=== PATIENT | male | born 1945 | race Caucasian/White ===

== ENCOUNTER 2019-07-02 10:14 | Emergency (ER) | payer MEDICARE, OTHER ==
--- OUTSIDE RECORDS SUMMARY | 2019-07-02 10:19 | XMS REPORT | Continuity of Care Document ---
:1945 External Reference #:[id number] Author Name EH Fleming Address [address] [place] [id number] Problems Active Problems Provider Date Primary basal cell carcinoma of left lower limb Onset: 10/21/2018 Basal cell carcinoma of ear Onset: 10/21/2018 Degenerative disorder of macula Onset: 08/07/2017 Esophageal reflux finding Onset: 08/07/2017 Benign prostatic hyperplasia Onset: 08/05/2016 Essential hypertension Onset: 08/05/2016 Inactive Problems Benign essential hypertension Onset: 04/20/2019 Inactive: 04/20/2019 Vertigo Onset: 02/16/2019 Inactive: 02/16/2019 Dizziness and giddiness Onset: 02/16/2019 Inactive: 02/16/2019 Visual disturbance Onset: 02/16/2019 Inactive: 02/16/2019 Social History Type Date Description Comments Sex Unknown Allergies, Adverse Reactions, Alerts Description No Information Available Medications Active Medications SIG Qnty Indications Ordering Date Provider Fluticasone Propionate 2 sprays daily 3units Unknown 04/20/2019 Nasal 50mcg/Act Suspension Lisinopril-Hydrochloro Oral; Take 1 90tabs Unknown 10/18/2018 thiazide Tablet Daily 10-12.5mg Tablets Aspirin Ec 1 daily Oral 30tabs Unknown 08/07/2017 81mg Tablets Pantoprazole Sodium Oral; Take 1 90tabs Unknown 08/01/[address] DR Solizteaundrea Allergy Oral Unknown 08/05/2016 10mg Tablets Triamcinolone Apply twice 60units Unknown 08/05/2016 Acetonide daily External 0.1% Ointment Immunizations CPT Code Status Date Vaccine Lot # [id number] Given 07/13/2018 Influenza Virus Vaccine, Quadrivalent, Split, Im Use 0.25ML 66826 Given 07/13/2018 Influenza Virus Vaccine, Quadrivalent, Split, Im Use 0.25ML 86110 Given 07/13/2018 Influenza Virus Vaccine, Quadrivalent, Split, Im Use 0.25ML 87728 Given 07/13/2018 Flu < 65 years 68477 Given 07/13/2018 Influenza Virus Vaccine, Quadrivalent, Split, Preservative Free 48735 Given 07/13/2018 Flumist 57567 Given 07/13/2018 Flu High Dose 10441 Given 07/13/2018 Influenza Virus Vaccine, Split, Preserv Free, Intradermal Use 07576 Given 05/18/2018 Pneumovax - for >=2years - PPSV23 64779 Given 08/07/2017 Influenza Virus Vaccine, Split, Preserv Free, Intradermal Use 40181 Given 08/07/2017 Flu High Dose 93458 Given 08/07/2017 Flumist 18550 Given 08/07/2017 Influenza Virus Vaccine, Quadrivalent, Split, Preservative Free 27542 Given 08/07/2017 Flu < 65 years 71215 Given 08/07/2017 Influenza Virus Vaccine, Quadrivalent, Split, Im Use 0.25ML 67947 Given 08/07/2017 Influenza Virus Vaccine, Quadrivalent, Split, Im Use 0.25ML 31364 Given 08/07/2017 Influenza Virus Vaccine, Quadrivalent, Split, Im Use 0.25ML 20521 Given 08/05/2016 Influenza Virus Vaccine, Quadrivalent, Split, Im Use 0.25ML 37358 Given 08/05/2016 Influenza Virus Vaccine, Quadrivalent, Split, Im Use 0.25ML 45263 Given 08/05/2016 Influenza Virus Vaccine, Quadrivalent, Split, Im Use 0.25ML 53325 Given 08/05/2016 Flu < 65 years 66989 Given 08/05/2016 Influenza Virus Vaccine, Quadrivalent, Split, Preservative Free 56706 Given 08/05/2016 Flumist 54508 Given 08/05/2016 Prevnar 13 55746 Given 08/05/2016 Flu High Dose 79130 Given 08/05/2016 Influenza Virus Vaccine, Split, Preserv Free, Intradermal Use Vital Signs Date Vital Result Comment 06/28/2019 10:15am BP Systolic 130 mmHg BP Diastolic 72 mmHg Weight 207.00 lb Heart Rate 76 /min Body Temperature 96.9 F O2 % BldC Oximetry 97 % 04/20/2019 9:50am BP Systolic 138 mmHg Weight 204.00 lb Heart Rate 76 /min Body Temperature 97.6 F O2 % BldC Oximetry 97 % Results Test Acquired Date Facility Test Result H/L Range Note Hemoglobin 02/16/2019 N2N/CCD Import Hemoglobin 14.5 g/dL 14.0-18.0 g/dL Lymph# 02/16/2019 N2N/CCD Import Lymph# 2.4 1.0-4.8 10_3/ul 10 3/ul Lymph% 02/16/2019 N2N/CCD Import Lymph% 26.4 % 20 - 45 % MCH 02/16/2019 N2N/CCD Import MCH 31 pg 27-31 pg MCHC 02/16/2019 N2N/CCD Import MCHC 34 g/dL 31-36 g/dL MCV 02/16/2019 N2N/CCD Import MCV 93 fL 80-94 fL Kendall# 02/16/2019 N2N/CCD Import Kendall# 0.8 0-0.8 10 10_3/ul 3/ul Kendall% 02/16/2019 N2N/CCD Import Kendall% 8.9 % 0 - 10 % MPV 02/16/2019 N2N/CCD Import MPV 9.1 fL 7.4-10.4 fL Neut# 02/16/2019 N2N/CCD Import Neut# 5.6 1.5-7.7 10_3/ul 10 3/ul Neut% 02/16/2019 N2N/CCD Import Neut% 60.3 % 50 - 75 % NRBC# 02/16/2019 N2N/CCD Import NRBC# 0.0 10_3/ul NRBC% 02/16/2019 N2N/CCD Import NRBC% 0.1 _ Platelets 02/16/2019 N2N/CCD Import Platelets 179 150-450 10_3/uL 10 3/uL Potassium 02/16/2019 N2N/CCD Import Potassium 4.8 mmol/L 3.5-5.0 mmol/L Protein, Total 02/16/2019 N2N/CCD Import Protein, Total 6.8 g/dL 6.4- 8.9 g/dL RBC 02/16/2019 N2N/CCD Import RBC 4.64 4.18-5.48 10_6_/uL 10 6 /uL RDW 02/16/2019 N2N/CCD Import RDW 17 % High 10-15 % Sodium 02/16/2019 N2N/CCD Import Sodium 138 mmol/L 135-145 mmol/L TSH 02/16/2019 N2N/CCD Import TSH 0.98 0.34-5.60 mcIU/mL mcIU/mL WBC 02/16/2019 N2N/CCD Import WBC 9.2 3.5-10.8 10_3/uL 10 3/uL A/G Ratio 02/16/2019 N2N/CCD Import A/G Ratio 1.7 _ 1-3 Albumin 02/16/2019 N2N/CCD Import Albumin 4.3 g/dL 3.2-5.2 g/dL Alk Phos 02/16/2019 N2N/CCD Import Alk Phos 52 U/L 34-104 U/L Alt 02/16/2019 N2N/CCD Import Alt 21 U/L 7-52 U/L Anion Gap 02/16/2019 N2N/CCD Import Anion Gap 5 mmol/L 2-11 mmol/L Ast 02/16/2019 N2N/CCD Import Ast 21 U/L 13-39 U/L Baso# 02/16/2019 N2N/CCD Import Baso# 0.1 0-0.2 10 10_3/ul 3/ul Baso% 02/16/2019 N2N/CCD Import Baso% 1.5 % 0 - 2 % Bilirubin Total 02/16/2019 N2N/CCD Import Bilirubin Total 0.40 mg/dL 0.2 -1.0 mg/dL BUN 02/16/2019 N2N/CCD Import BUN 19 mg/dL 6-24 mg/dL BUN/Creat Ratio 02/16/2019 N2N/CCD Import BUN/Creat Ratio 14.2 _ 8-20 Hematocrit 02/16/2019 N2N/CCD Import Hematocrit 43 % 42-52 % Glucose 02/16/2019 N2N/CCD Import Glucose 93 mg/dL 70-100 mg/dL Globulin 02/16/2019 N2N/CCD Import Globulin 2.5 g/dL 2-4 g/dL GFR Non Afr 02/16/2019 N2N/CCD Import GFR Non Afr 52.1 _ >60 Amer Amer GFR Afr Amer 02/16/2019 N2N/CCD Import GFR Afr Amer 63.1 _ >60 Eosin% 02/16/2019 N2N/CCD Import Eosin% 2.9 % 0 - 5 % Eosin# 02/16/2019 N2N/CCD Import Eosin# 0.3 0-0.6 10 10_3/ul 3/ul Creatinine 02/16/2019 N2N/CCD Import Creatinine 1.34 mg/dL High 0.67- 1.17 mg/dL Co2 02/16/2019 N2N/CCD Import Co2 28 mmol/L 22-32 mmol/L Chloride 02/16/2019 N2N/CCD Import Chloride 105 mmol/L 101-111 mmol/L Calcium 02/16/2019 N2N/CCD Import Calcium 10.0 mg/dL 8.6-10.3 mg/dL Sodium 02/03/2019 N2N/CCD Import Sodium 140 mmol/L 135-145 mmol/L Potassium 02/03/2019 N2N/CCD Import Potassium 4.2 mmol/L 3.5-5.0 mmol/L Glucose 02/03/2019 N2N/CCD Import Glucose 91 mg/dL 70-100 mg/dL GFR Non Afr 02/03/2019 N2N/CCD Import GFR Non Afr 72.2 _ >60 Amer Amer GFR Afr Amer 02/03/2019 N2N/CCD Import GFR Afr Amer 87.4 _ >60 Creatinine 02/03/2019 N2N/CCD Import Creatinine 1.01 mg/dL 0.67-1.17 mg/dL Co2 02/03/2019 N2N/CCD Import Co2 29 mmol/L 22-32 mmol/L Chloride 02/03/2019 N2N/CCD Import Chloride 105 mmol/L 101-111 mmol/L Calcium 02/03/2019 N2N/CCD Import Calcium 9.6 mg/dL 8.6-10.3 mg/dL BUN/Creat Ratio 02/03/2019 N2N/CCD Import BUN/Creat Ratio 15.8 _ 8-20 BUN 02/03/2019 N2N/CCD Import BUN 16 mg/dL 6-24 mg/dL Anion Gap 02/03/2019 N2N/CCD Import Anion Gap 6 mmol/L 2-11 mmol/L Zoster Shingrix 12/31/2018 N2N/CCD Import Zoster Shingrix Tops Procedures Date Code Description Status 02/16/2019 47273 Electrocardiogram Complete Completed Medical Devices Description No Information Available Encounters Description No Information Available Assessments Date Code Description Provider 06/28/2019 K13.0 Diseases of lips EH Fleming Plan of Treatment Future Appointment(s):10/21/2019 10:00 am - Mary Solano MD at [facility] Main2018 - EH FlemingK13.0 Diseases of lipsComments:Suspect angular cheilitis. Disc. vasoline in corners of lips. Avoiding products. Trial of rx steroid cream daily x 2 weeks to see if resolved. Triamcinolone 0.1%.SE reviewed. If no improvement with above, sooner if worsening contact office. Disc. referral to derm as needed. Functional Status Description No Information Available Mental Status Description No Information Available Referrals Description No Information Available
[2019-07-02 10:25] VITALS: BP 152/82
--- NOTE | 2019-07-02 10:51 | UC ---
Ear Complaint HPI - HPI Summary HPI Summary: 74-year-old male comes in with a chief complaint of right ear pain. Is been going on for days been getting worse he does wear hearing aids. Stopped wearing hearing aids last day due to the pain and swelling. No fevers no chills no sore throat no rhinorrhea. He has been treating his angular chelitis with an antifungal. He does wonder if it's fungal infection is ear canal. - History of Current Complaint Chief Complaint: UCEar Stated Complaint: EAR COMPLAINT Time Seen by Provider: 07/02/19 10:37 Pain Intensity: 2 - Allergies/Home Medications Allergies/Adverse Reactions: Allergies Allergy/AdvReac Type Severity Reaction Status Date / Time No Known Allergies Allergy Verified 07/02/19 10:25 Home Medications: Home Medications Aspirin [Aspirin Childrens 81 MG] 81 mg PO DAILY 07/02/19 [History Confirmed 10/19] Fluticasone Propionate [24 Hour Allergy] 9.9 ml NS DAILY 07/02/19 [History Confirmed 07/02/19] Lisinopril/Hydrochlorothiazide [Lisinopril-Hctz 10-12.5 mg Tab] 1 each PO DAILY 07/02/19 [History Confirmed 07/02/19] Triamcinolone 0.5% OINT * 1 applic TOPICAL BID 07/02/19 [History Confirmed 07/02] PMH/Surg Hx/FS Hx/Imm Hx Previously Healthy: Yes Cardiovascular History: Hypertension GI/ History: Gastroesophageal Reflux - Surgical History Surgical History: Yes Surgery Procedure, Year, and Place: ganglion cyst - Family History Known Family History: Positive: Non-Contributory - Social History Alcohol Use: Occasionally Substance Use Type: None Smoking Status (MU): Never Smoked Tobacco Review of Systems All Other Systems Reviewed And Are Negative: Yes Constitutional: Positive: Negative Skin: Positive: Other - see hpi Eyes: Positive: Negative ENT: Positive: Ear Ache Respiratory: Positive: Negative Cardiovascular: Positive: Negative Gastrointestinal: Positive: Negative Motor: Positive: Negative Neurovascular: Positive: Negative Musculoskeletal: Positive: Negative Neurological: Positive: Negative Psychological: Positive: Negative Is Patient Immunocompromised?: No Physical Exam Triage Information Reviewed: Yes Appearance: Well-Appearing, No Pain Distress, Well-Nourished Vital Signs: Initial Vital Signs Temp 98.2 F 07/02/19 10:20 Pulse 82 07/02/19 10:20 Resp 16 11/02/19 10:20 BP 152/82 07/02/19 10:20 Pulse Ox 99 07/02/19 10:20 Vital Signs Reviewed: Yes Eye Exam: Normal Eyes: Positive: Conjunctiva Clear ENT: Positive: Pharynx normal, Other - Tender to palpation on the right tragus. The tragus is swollen. The ear canal is swollen IM able to see a small portion of the TM therefore the ear canals not completely swollen shut at this time. Neck: Positive: Supple Respiratory: Positive: Lungs clear, Normal breath sounds, No respiratory distress Cardiovascular: Positive: RRR Musculoskeletal: Positive: Strength Intact, ROM Intact Neurological: Positive: Alert, Muscle Tone Normal Psychological: Positive: Age Appropriate Behavior Skin: Positive: Other - At the angles of the mouth there is a small amount of erythema. Ear Complaint Course/Dx - Course Course Of Treatment: Going to treat the otitis externa with Cortisporin otic. Because of the recent fungal infection also wrote a prescription for Chlortrimazole cream to be applied externally. Patient follow-up with his primary care doctor if not improved or worse. Can also get reevaluated here if worse or any questions or concerns. - Differential Dx/Diagnosis Provider Diagnosis: Otitis externa of right ear Discharge ED - Sign-Out/Discharge Documenting (check all that apply): Patient Departure All imaging exams completed and their final reports reviewed: No Studies - Discharge Plan Condition: Stable Disposition: HOME Prescriptions: Clotrimazole [Antifungal] 1 applic TOPICAL BID #14 gm Neomyc/Polym/HC 1% OTIC SUSP* [Cortisporin Otic Susp 1%*] 4 drop RIGHT EAR QID # 1 btl Patient Education Materials: Otitis Externa (ED) Referrals: Jud Villalta MD [Primary Care Provider] - Additional Instructions: FOLLOW UP WITH YOUR DOCTOR IF NOT COMPLETELY IMPROVED. GET RECHECKED SOONER IF WORSE OR ANY QUESTIONS OR CONCERNS. - Billing Disposition and Condition Condition: STABLE Disposition: Home
== END 2019-07-02 10:57 | disposition home or self-care (01) ==
LOC: UCEAST 10:14
DX: H60.91 Unspecified otitis externa, right ear (principal); I10 Essential (primary) hypertension; R23.8 Other skin changes; Z79.899 Other long term (current) drug therapy; Z79.82 Long term (current) use of aspirin
CPT/HCPCS: 99212; G0463